=== PATIENT | male | born 1960 | race Hispanic/Latino ===

== ENCOUNTER 2022-02-17 06:39 | Inpatient (IN) | payer OTHER ==
[2022-02-17] VITALS (9 sets, daily range): BP systolic 106–132; BP diastolic 75–90
[~2022-02-17] VITALS: Ht 160 cm; Wt 68.0 kg
[2022-02-17] MEDS ORDERED: MELATONIN 5 MG TABLET PO PRN (08:45)
[2022-02-17] MEDS ORDERED: Morphine 4mg INJECTION 4 MG/ML INJ IV PRN (08:45)
[2022-02-17] MEDS ORDERED: BENZONATATE 100 MG CAP PO PRN (08:45)
[2022-02-17] MEDS ORDERED: DOCUSATE SODIUM 100 MG CAP PO PRN (08:45)
[2022-02-17] MEDS ORDERED: HYDRALAZINE HCL 20 MG/ML VIAL IV PRN (08:45)
[2022-02-17] MEDS ORDERED: LIDOCAINE 4% PATCH TP PRN (08:45)
[2022-02-17] MEDS ORDERED: HYDROCODONE/APAP 5MG-325MG TAB PO PRN (08:45)
[2022-02-17] MEDS ORDERED: POTASSIUM CHLORIDE 20 MEQ TAB CR PO PRN (08:45)
[2022-02-17] MEDS ORDERED: ACETAMINOPHEN 325 MG TAB PO PRN (08:45)
[2022-02-17] MEDS ORDERED: SIMETHICONE 80 MG CHEW PO PRN (08:45)
[2022-02-17] MEDS ORDERED: DIPHENHYDRAMINE HCL 25 MG CAP PO PRN (08:45)
[2022-02-17] MEDS ORDERED: ALBUTEROL/IPRATROPIUM 3 ML NEB NEB PRN (08:45)
[2022-02-17] MEDS ORDERED: DEXTROSE 50% SYRINGE 50 ML IV PRN (08:45)
[2022-02-17 08:53] LABS: BASOPHILS % 0.2 % (0.0-1.0); EOSINOPHILS % 0.2 % (0.0-6.0); HEMATOCRIT 50.2 % (38.2-49.6); HEMOGLOBIN 16.2 g/dL (14.0-18.0); LYMPHOCYTES # (AUTO) 1.4 (1.0-3.2); LYMPHOCYTES % 16.9 % (18.0-39.1); MEAN CORPUSCULAR HEMOGLOBIN 30.8 pg (28-32); MEAN CORPUSCULAR HGB CONC 32.3 g/dL (31-35); MEAN CORPUSCULAR VOLUME 95.4 fL (81-99); MONOCYTES # (AUTO) 0.7 (0.2-0.8); MONOCYTES % 8.4 % (4.4-11.3); NEUTROPHILS # (AUTO) 6.1 (2.1-6.9); NEUTROPHILS % 74.1 % (38.7-80.0); PLATELET COUNT 217 x10e3/uL (140-360); RED BLOOD COUNT 5.26 x10e6/uL (4.3-5.7)
[2022-02-17 09:17] LABS: ALBUMIN 4.2 g/dL (3.5-5.0); ALBUMIN/GLOBULIN RATIO 1.6 (0.8-2.0); ANION GAP 15.3 mmol/L (8-16); CALCIUM 9.2 mg/dL (8.4-10.2); CREATININE, SERUM 0.79 mg/dL (0.72-1.25); POTASSIUM 4.3 mmol/L (3.5-5.1)
[2022-02-17 09:21] LABS: INR 0.98; PROTHROMBIN TIME 13.2 seconds (11.9-14.5)
[2022-02-17] MEDS ORDERED: Morphine 2mg Syringe 2 MG/ML SYR IV PRN (10:00)
[2022-02-17 10:01] LABS: CHOL/HDL RATIO 2.9 (3.9-4.7)
[2022-02-17] MEDS ORDERED: ONDANSETRON HCL INJ 2MG/ML 2ML 2 MG/ML VIAL ONE (12:05)
[2022-02-17] MEDS ORDERED: SEVOFLURANE INHAL SOLN 250 ML PEN BTL ONE (12:05)
[2022-02-17] MEDS ORDERED: SUCCINYLCHOLINE CHLORIDE 20 MG/ML 10ML VIAL ONE (12:05)
[2022-02-17] MEDS ORDERED: LIDOCAINE HCL 2% LOCAL INJ 5 ML SDV VIAL INJ ONE (12:05)
[2022-02-17] MEDS ORDERED: PROPOFOL IV EMULSION 10 MG/ML 20 ML VIAL ONE (12:05)
[2022-02-17] MEDS ORDERED: POVIDONE IODINE 0.05% 0.05 % ML PO ONE (12:05)
[2022-02-17] MEDS ORDERED: DEXAMETHASONE SOD PHOS INJ 4 MG/ML SDV ONE (12:05)
[2022-02-17] MEDS: DEXTROSE 5%/0.9% SOD CHL 1,000 ML IV SCH (12:07)
[2022-02-18] VITALS (8 sets, daily range): BP systolic 100–129; BP diastolic 50–87
[2022-02-18] MEDS: DEXTROSE 5%/0.9% SOD CHL 1,000 ML IV SCH ×2 (04:03→17:34)
[2022-02-18 05:03] LABS: BASOPHILS % 0.6 % (0.0-1.0); EOSINOPHILS # (AUTO) 0.2 (0.0-0.4); EOSINOPHILS % 2.8 % (0.0-6.0); HEMATOCRIT 44.4 % (38.2-49.6); MEAN CORPUSCULAR HEMOGLOBIN 30.8 pg (28-32); MEAN CORPUSCULAR HGB CONC 33.8 g/dL (31-35); MEAN CORPUSCULAR VOLUME 91.2 fL (81-99); MONOCYTES # (AUTO) 0.5 (0.2-0.8); MONOCYTES % 8.6 % (4.4-11.3); NEUTROPHILS # (AUTO) 2.7 (2.1-6.9); NEUTROPHILS % 50.8 % (38.7-80.0); PLATELET COUNT 191 x10e3/uL (140-360); RED BLOOD COUNT 4.87 x10e6/uL (4.3-5.7); RED CELL DISTRIBUTION WIDTH 13.2 % (11.7-14.4)
[2022-02-18 05:33] LABS: ALBUMIN 3.4 g/dL (3.5-5.0); ALBUMIN/GLOBULIN RATIO 1.5 (0.8-2.0); ANION GAP 10.7 mmol/L (8-16); CREATININE, SERUM 0.84 mg/dL (0.72-1.25); POTASSIUM 3.7 mmol/L (3.5-5.1)
[2022-02-18] MEDS ORDERED: ACETAMINOPHEN 1000 MG/100 ML 0 ML IV ONE (07:29)
[2022-02-18] MEDS ORDERED: KETAMINE HCL INJ 50 MG/ML 10 ML VIAL ONE (07:29)
[2022-02-18] MEDS ORDERED: PANTOPRAZOLE SOD 40 MG TABEC PO SCH (07:30)
[2022-02-18] MEDS ORDERED: BUPIVACAINE 0.25% 30ML SDV ONE (13:18)
[2022-02-18] MEDS ORDERED: LIDOCAINE HCL/EPINEPHRINE/PF 10 ML VIAL ONE (13:19)
[2022-02-18] MEDS ORDERED: MIDAZOLAM HCL 2 MG/2 ML VIAL ONE (13:47)
[2022-02-18] MEDS ORDERED: FENTANYL CITRATE/PF 100MCG/2 ML INJ ONE (13:47)
[2022-02-18] MEDS ORDERED: HYDROCODONE/APAP 7.5MG-325MG 1 EA TAB PO PRN (16:15)
[2022-02-18] MEDS ORDERED: KETOROLAC TROMETHAMINE 30 MG/ML VIAL IV PRN (16:15)
[2022-02-18] MEDS: ONDANSETRON HCL INJ 2MG/ML 2ML 2 MG/ML VIAL IV PRN (17:20)
[2022-02-18] MEDS: HYDROMORPHONE 1MG/1ML INJ IV PRN (17:22)
[2022-02-19] MEDS: HYDROMORPHONE 1MG/1ML INJ IV PRN ×2 (00:36→12:10)
[2022-02-19 04:00] VITALS: BP 104/66
[2022-02-19] MEDS: DEXTROSE 5%/0.9% SOD CHL 1,000 ML IV SCH ×2 (04:05→14:51)
[2022-02-19 04:56] LABS: BASOPHILS % 0.1 % (0.0-1.0); HEMATOCRIT 45.2 % (38.2-49.6); HEMOGLOBIN 14.4 g/dL (14.0-18.0); LYMPHOCYTES # (AUTO) 1.3 (1.0-3.2); LYMPHOCYTES % 14.7 % (18.0-39.1); MEAN CORPUSCULAR HEMOGLOBIN 30.7 pg (28-32); MEAN CORPUSCULAR HGB CONC 31.9 g/dL (31-35); MEAN CORPUSCULAR VOLUME 96.4 fL (81-99); MONOCYTES # (AUTO) 0.7 (0.2-0.8); MONOCYTES % 7.5 % (4.4-11.3); NEUTROPHILS % 77.5 % (38.7-80.0); PLATELET COUNT 200 x10e3/uL (140-360); RED BLOOD COUNT 4.69 x10e6/uL (4.3-5.7); RED CELL DISTRIBUTION WIDTH 12.9 % (11.7-14.4)
[2022-02-19 05:14] LABS: ANION GAP 13.6 mmol/L (8-16); CALCIUM 7.7 mg/dL (8.4-10.2); CREATININE, SERUM 0.81 mg/dL (0.72-1.25); POTASSIUM 3.6 mmol/L (3.5-5.1)
[2022-02-19 08:18] VITALS: BP 116/80
[2022-02-19 10:58] VITALS: BP 116/80
[2022-02-19] MEDS: ONDANSETRON HCL INJ 2MG/ML 2ML 2 MG/ML VIAL IV PRN (12:10)
[2022-02-19 12:47] VITALS: BP 125/77
[2022-02-19 16:55] VITALS: BP 125/79
== END 2022-02-19 18:44 | disposition home or self-care (01) | DRG 352 ==
LOC: MED/SURG 07:08
PROVIDERS: ADMIT Internal Medicine; ATTEND Internal Medicine
PROC: 0YU50JZ Supplement Right Inguinal Region with Synthetic Substitute, Open Approach (ICD-10-PCS; principal; 2022-02-18 14:55)
DX: K40.30 Unilateral inguinal hernia, with obstruction, without gangrene, not specified as recurrent (principal); Z84.1 Family history of disorders of kidney and ureter; Z83.3 Family history of diabetes mellitus; Z80.9 Family history of malignant neoplasm, unspecified
CPT/HCPCS: 36415; 80048; 80053; 80061; 85025; 85610; 88302; 93005; 94799; C1781; J0330; J1100; J1170; J2001; J2250; J2405; J3010; J7042